=== PATIENT | female | born 1965 | race Caucasian/White ===

== ENCOUNTER 2016-07-22 08:02 | Day surgery (SDC) | payer MEDICARE, MEDICAID ==
[~2016-07-22] VITALS: Ht 170.2 cm; Wt 120.0 kg
[~2016-07-22 08:02] MED LIST: ASPI-496 PO; CETI10TA18 PO; CHOL500050 PO; CITA40TA12 PO; FOLI-17 PO; GABA800T2 PO; HYDR-3138 PO; HYDROCHLOROQUINE PO; LEVO137T3 PO; SERT50TA5 PO
[2016-07-22] MEDS ORDERED: LACTATED RINGERS 1,000 ML IV SCH (08:57)
[2016-07-22 09:02] VITALS: BP 141/87
[2016-07-22] MEDS ORDERED: PLEASE ENTER HEIGHT AND WEIGHT MC SCH (09:30)
[2016-07-22] MEDS ORDERED: PROPOFOL 10 MG/ML, 20ML ONE (10:06)
== END 2016-07-22 11:45 ==
LOC: OUT 08:02
PROVIDERS: ATTEND Internal Medicine Gastroenterology
DX: K57.30 Diverticulosis of large intestine without perforation or abscess without bleeding (principal); K62.89 Other specified diseases of anus and rectum; Z88.0 Allergy status to penicillin; Z88.8 Allergy status to other drugs, medicaments and biological substances; Z86.73 Personal history of transient ischemic attack (TIA), and cerebral infarction without residual deficits; E66.9 Obesity, unspecified
CPT/HCPCS: 45378; 93005; J2704

== ENCOUNTER → 2020-07-02 | Outpatient (CLI) | payer MEDICARE ==
[~2020-07-02] MED LIST changes: -FOLI-17 PO; +FOLI1TAB32 PO; -GABA800T2 PO; +GABA800T5 PO; +GADOTERATE 10 MMOL/20ML SYR ONE; -HYDR-3138 PO; +HYDR-3237 PO; +SERT50TA28 PO; -SERT50TA5 PO
== END | disposition home or self-care (01) ==
LOC: RAD 09:56 → EDSTATUS 10:30
PROVIDERS: ATTEND Registered Nurse
DX: G43.109 Migraine with aura, not intractable, without status migrainosus (principal)
CPT/HCPCS: 70553; A9575